=== PATIENT | male | born 1975 | race Caucasian/White ===

== ENCOUNTER 2017-01-08 15:08 | Inpatient (IN) | payer OTHER ==
[~2017-01-08] VITALS: Ht 182.9 cm; Wt 79.4 kg
--- NOTE | ~2017-01-08 | DS ---
Unit #: [id number] #: [id number] Patient: AMANDA CUI [id number] [facility] [address] [place] [address] [id number] MR#: [id number] NAME: AMANDA CUI ROOM: [facility] Age: 41 Sex: M Admission Date: 01/08/2017 : 1975 Discharge Date: 01/11/2017 Attending Physician: Pradeep Ayala M.D. Primary Care Physician: Primary Care Physician No DISCHARGE SUMMARY REASON FOR ADMISSION Substance abuse. DIAGNOSTIC STUDIES LABORATORY DATA: Urine drug screen positive for amphetamine and opiate. HOSPITAL COURSE Patient was admitted to inpatient unit on 01/08 and discharged on 01/11/2017. Patient was treated with group therapy, individual therapy, medication management. Patient was responsive to treatment and showed improvement. Subsequently, patient was discharged with a plan to followup in outpatient program. DISCHARGE DIAGNOSES PSYCHIATRIC: 1. Opiate use disorder, severe, F11.20. 2. Cocaine use disorder, severe, F14.20. 3. Amphetamine use disorder, severe, F15.20. 4. Mood disorder NOS, F32.9. SECONDARY DIAGNOSIS: Deferred. MEDICAL DIAGNOSIS: None. STRESSORS: Psychosocial stressor. FOLLOWUP CARE Patient to followup in outpatient program as per geriatric social worker. DISCHARGE MEDICATIONS None. CONDITION AT DISCHARGE Patient pleasant and cooperative. Denied any psychotic symptoms or any suicidal ideation. PROGNOSIS Guarded. DIET AND ACTIVITY As tolerated. Unit #: [id number] #: [id number] Patient: AMANDA CUI Dictated by... Pradeep Ayala M.D. [facility]/benjamin TD: 01/12/2017 21:14 JOB #: [id number] DISCHARGE SUMMARY Page 1 of 1 X Pradeep Ayala MD X DISCHARGE SUMMARY
--- NOTE | ~2017-01-08 | HP ---
Unit #: [id number] #: [id number] Patient: FEDERICO CUI [id number] [facility] [address] [place] [address] [id number] I MR#: [id number] NAME: FEDERICO CUI ROOM: P177 Age: 41 Sex: M Admission Date: 01/08/2017 : 1975 Attending Physician: Pradeep Ayala M.D. Admitting Physician: Praedep Ayala M.D. Primary Care Physician: Primary Care Physician No HISTORY AND PHYSICAL HISTORY OF PRESENT ILLNESS Federico is a 41 year old [place] immigrant admitted to [facility] because of his drug use. PAST MEDICAL HISTORY Long history of illicit substance abuse to include snorting heroin and methamphetamine. PAST SURGICAL HISTORY Cardiac surgery as a child to repair a hole. ALLERGIES No known drug allergies. SOCIAL HISTORY Smokes one pack per day. Drinks alcohol on occasion. Admits to a long history of poly illicit substance abuse. FAMILY HISTORY Medically noncontributory. REVIEW OF SYSTEMS CONSTITUTIONAL: No fever or chills. HEENT: Denies any sore throat, ear pain or runny nose. CARDIOVASCULAR: Denies chest pain, irregular heart rhythm or palpitations. CHEST: Denies shortness of breath or cough. No hemoptysis. GASTROINTESTINAL: Denies nausea, vomiting, diarrhea or chronic constipation. ENDOCRINE: Denies history of increased thirst or urination. No recent significant weight loss or gain. GENITOURINARY: Denies dysuria, frequency, or hematuria. SKIN: Denies any rashes. HEMATOLOGIC: Denies history of increased bleeding or bruising. MUSCULOSKELETAL: Denies any hot, swollen joints. No generalized muscle pain. NEUROLOGIC: Denies problems with vision or speech. No frequent, severe headaches. No numbness, tingling or weakness in any extremities. Denies loss of bladder or bowel control. CURRENT MEDICATIONS Detox protocol Unit #: [id number] #: [id number] Patient: FEDERICO CUI PHYSICAL EXAMINATION GENERAL: Alert, well-nourished, in no apparent distress. VITAL SIGNS: Blood pressure 136/92, heart rate 60, respirations 16, temperature 98.6. WEIGHT: 175. HEIGHT: 5 foot 0 inches. SKIN: Warm and dry without rash or lesion. HEENT: Normocephalic. TMs not viewed. Oral and nasal passages clear. Conjunctivae clear. Pupils equal, round and reactive to light and accommodation. Extraocular movements intact. NECK: Supple without lymphadenopathy or thyromegaly. HEART: Regular rate and rhythm without murmur. LUNGS: Clear. ABDOMEN: Soft, nontender. : Not done. EXTREMITIES: No evidence of cyanosis, clubbing or edema. Moves all extremities without focal deficit. NEUROLOGICAL: Grossly within normal limits. Cranial Nerves: II: Visual maria are intact. III, IV AND : Extraocular movements are intact. Pupils are equal, round and reactive to light. V: Facial sensation is grossly normal. VII: Facial movements and expression are normal. VIII: Auditory acuity grossly intact. IX, X: Uvula is midline. Phonation is normal. XI: Patient shrugs shoulders and turns head normally. XII: Tongue protrudes in the midline. Sensory and Motor Function: Sensory and motor sensation is grossly normal. Motor: moves all extremities well. Coordination: Gait is normal. Deep Tendon Reflexes: Intact. IMPRESSION Psychiatric admission. RECOMMENDATIONS PSYCHIATRIC: Per psychiatrist. MEDICAL: I see no contraindications to participating in facility's activities. MEDICAL PROGNOSIS Good. MEDICAL CONDITION Stable. Dictated by... Allison Sutherland PMagAMag-Ana Maria. for Ailyn Gamble/spencer TD: 01/09/2017 21:54 JOB #: [id number] Unit #: [id number] #: [id number] Patient: FEDERICO CUI HISTORY AND PHYSICAL Page 1 of 1 X Allison Sutherland HISTORY AND PHYSICAL
--- NOTE | ~2017-01-08 | A ---
[facility] Nutrition Therapy DATE: 01/09/17 Patient: AMANDA CUI Physician: DIMAS Address: [address] [place] [address] Room/Bed: [address], Zip: [place] [address] Admit Date: 01/08/17 Date of : [birth year] Height: 6 0 Weight: 174 79.3786 NUTRITIONAL ASSESSMENT: REASON: UNINTENTIONAL WEIGHT LOSS PATIENT ADMITTED FOR DETOX PMH: NONE Anthropometrics: HT: 72", WT: 175#, BMI: 23.7, %IBW: 98 Labs: 01/09/17- K: 3.2, ALL OTHER NUTRITIONAL LABS WNL Meds: DETOX PROTOCOL Assessment: PATIENT IS A 41 Y/O MALE ADMITTED FOR DETOX. PATIENT IS CURRENTLY UNEMPLOYED, HOMELESS, SMOKES 1 PPD, HAS DAILY HEROIN AND METH USE, AND WEEKLY ETOH AND COCAINE USE. IT IS NOTED THAT PATIENT RELAPSED LAST YEAR AND HE HAS A HX OF INPATIENT PSYCH AND CHEMICAL DEPENDENCY TREATMENT. UPON ADMIT PATIENT STATED A POOR APPETITE WITH A 40# WEIGHT LOSS X MONTHS. THERE IS NO WEIGHT HX RECORDED IN [employer], AND THERE ARE NO CURRENT PO INTAKES D/T PATIENT RECENTLY ADMITTED. THERE ARE NO SKIN OR GI ISSUES NOTED ATT. PATIENT IS ON A REGULAR DIET WITH NO CAFFEINE. PATIENT'S NUTRITIONAL LABS WERE ESSENTIALLY WNL, HIS BMI IS WITHIN A HEALTHY RANGE, AND HE IS 98% OF HIS IBW. THIS RD SUSPECTS WEIGHT AND APPETITE WILL STABILIZE AND POSSIBLY INCREASE FOLLOWING DETOX. Dx: UNINTENTIONAL WEIGHT LOSS R/T CURRENT CONDITION, DRUG USE AEB SELF-REPORTED WEIGHT LOSS AND DECREASED APPETITE, NUTRITIONAL RISK POINT Intervention: REGULAR DIET, NO CAFFEINE, MEDS PER MD, DETOX, PSYCH Monitoring, Evaluation and Goals: 1. ADEQUATE PO INTAKES >50% OF MEALS 2. PREVENT, CORRECT MICRO/MACRO NUTRIENT DEFICIENCIES 3. WEIGHTS; MAINTAIN CURRENT WEIGHT, PREVENT WEIGHT LOSS MONITOR: WEIGHTS, LABS, PO/FLUID INTAKES Recommendations: 1. CONTINUE REGULAR DIET WITH NO CAFFEINE TOLERATED. OFFER SNACKS BETWEEN MEALS. WILL INCREASE ENTREES TO LARGER PORTIONS 2. ENCOURAGE ADEQUATE PO AND FLUID INTAKES 3. OBTAIN WEIGHTS ROUTINELY (EVERY 3-4 DAYS) [facility] Nutrition Therapy DATE: 01/09/17 Patient: AMANDA CUI Physician: DIMAS Address: [address] [place] [address] LN Room/Bed: P177-2 [facility], Zip: [place] [address] Admit Date: 01/08/17 Date of : [birth year] Height: 6 0 Weight: 174 79.3786 4. IF PO INTAKES ARE BELOW 50% OF MEALS PLEASE ORDER ENSURE BID TO PROMOTE ADEQUATE KCAL AND PROTEIN INTAKES RD TO F/U PER PROTOCOL AND PRN R/T PATIENT MILDLY COMPROMISED Respectfully, TYRONE FELTON, RD, LD [facility] cc: client file
--- NOTE | ~2017-01-08 | PA ---
Unit #: [id number] #: [id number] Patient: AMANDA CUI [id number] [facility] [address] [place] [address] [id number] MR#: [id number] NAME: AMANDA CUI ROOM: P177 Age: 41 Sex: M Admission Date: 01/08/2017 : 1975 Date of Assessment: 01/09/2017 Attending Physician: Pradeep Ayala M.D. Admitting Physician: Pradeep Ayala M.D. Primary Care Physician: Primary Care Physician No PSYCHIATRIC ASSESSMENT INFORMANTS The patient reliability, fair informant and chart reliability, good. CHIEF COMPLAINT Drugs. HISTORY OF PRESENT ILLNESS Mr. Caballero is a 41-year-old, presented with the above-mentioned complaint, needing help, currently homeless. The patient reported opioid abuse, cocaine abuse, and amphetamine abuse. The patient presented with his sister for inpatient detox. The patient currently has a COWS score of 20. The patient denied any suicidal or homicidal ideation or any psychotic symptom. The patient reported a desire to change hitting rock bottom. Feeling sad and depressed, feeling of hopelessness. The patient reported multiple withdrawal symptoms; abdominal cramping, muscle cramping, restlessness, poor appetite, poor concentration, irritability, depressed mood, and yawning. The patient reported no history of blackout, HIV, or hepatitis, but history of withdrawal symptoms. No history of any IV drug use. Longest period of sobriety 9 months. Last period of sobriety in 11/2015. The patient reported tobacco use, age of onset 12; alcohol, age of onset 12; marijuana, used in the past; crack cocaine, age of onset 23; opioid, 30; and amphetamine, 40. The patient needing inpatient admission at this time for psychiatric stabilization. PAST PSYCHIATRIC HISTORY Remarkable for history of inpatient treatment in [place] in 2014. FAMILY HISTORY AND SOCIAL HISTORY The patient currently homeless. Poor support system. No history of legal charges or any abuse. Family psychiatric illness is unknown. According to the intake report, history of legal problem in the past. MEDICAL HISTORY Unremarkable for any chronic medical illness. Musculoskeletal; muscle strength and tone, no atrophy or abnormal movement. Gait normal. MEDICATION HISTORY None. ALLERGIES No known drug allergies. SUBSTANCE ABUSE HISTORY Unit #: [id number] #: [id number] Patient: AMANDA CUI Please see above. REVIEW OF SYSTEMS HEENT: Eyes, clear. Ears, nose, mouth, and throat; clear. CARDIOVASCULAR: Unremarkable. RESPIRATORY: Unremarkable. GI: Unremarkable. : Unremarkable. SKIN: Unremarkable. LYMPH NODE: Unremarkable. NEUROLOGIC: Unremarkable. ENDOCRINE: Unremarkable. HEMATOLOGIC: Unremarkable. ALLERGIC/IMMUNOLOGIC: Unremarkable. MUSCULOSKELETAL: Muscle strength and tone, no atrophy or abnormal movement. Gait normal. MENTAL STATUS EXAMINATION CONSTITUTIONAL: Measurement of vital signs; temperature 98.7, heart rate 61, respiratory rate 19, and blood pressure 137/93. Height 6 feet and weight 175 pounds. GENERAL APPEARANCE: The patient dressed casually. The patient did not show any facial deformity. MUSCULOSKELETAL: Please see above. PSYCHIATRIC EXAMINATION Description of speech; regular rate, normal volume, normal articulation, coherent, and spontaneous. Description of thought process, goal directed. Description of association, intact. Description of abnormal psychotic thinking; the patient denied any hallucination or delusions, but mood lability and substance abuse. Description of the patient's judgment: Concerning everyday activity, poor. Social situation, poor. Concerning psychiatric condition, poor. Complete mental status examination; oriented in time, place, and person. Recent and remote memory, fair. Attention span and concentration, fair. Language, able to name object and repeat phrases. Fund of knowledge, aware of current event and passive vocabulary intact. Mood and affect, sad and dysphoric. Insight and judgment, fair to poor. ASSETS AND LIABILITIES Assets, the patient is articulate and able to take care of his ADL. Liability, history of depression and substance abuse. ADMITTING DIAGNOSES Psychiatric: Opioid use disorder, severe, F11.20; cocaine use disorder, severe, F14.20; amphetamine use disorder, severe, F15.20; and mood disorder, not otherwise specified, F32.9. Secondary diagnosis: Deferred. Medical diagnosis: None. Stressors: Psychosocial stressors. PSYCHIATRIC PLAN AND TREATMENT GOAL AND DISCHARGE PLAN 1. Advised to admit the patient on the inpatient unit. Provide safe, supportive, and structured environment. Unit #: [id number] #: [id number] Patient: AMANDA CUI 2. Ordered labs; CBC, CMP, UA, and UDS. 3. Detox protocol and detox monitoring. 4. If needed, consider medication for depression. The patient to attend group therapy, individual therapy, and chemical dependency group. Treatment goal to attain euthymic mood, gain insight into his problem, and learn coping skills. DISCHARGE PLAN Plan to stabilize the patient and consider followup in outpatient program. ESTIMATED LENGTH OF STAY 3 to 5 days. Dictated by... Pradeep Ayala M.D. [facility]/cristal TD: 01/09/2017 15:54 JOB #: [id number] PSYCHIATRIC ASSESSMENT Page 1 of 1 X Pradeep Ayala MD X PSYCHIATRIC ASSESSMENT
--- NOTE | ~2017-01-08 | PN ---
Unit #: [id number] #: [id number] Patient: FEDERICO CUI [id number] [facility] [address] [place] [address] [id number] I MR#: [id number] NAME: FEDERICO CUI ROOM: [facility] Age: 41 Sex: M Admission Date: 01/08/2017 : 1975 Attending Physician: Pradeep Ayala M.D. Admitting Physician: Pradeep Ayala M.D. Primary Care Physician: Primary Care Physician Meche ALLEN PROGRESS NOTES DATE OF SERVICE 01/10/2017 DISCUSSION Federico is a 41-year-old male. Patient interviewed, chart reviewed. Obtained information from nursing staff. Patient reports feeling better, decrease in anxiety, depression. Patient tolerating medication fairly well. Currently receiving treatment for opiate detox. History of cocaine abuse, amphetamine abuse. Complete review of systems unremarkable. MENTAL STATUS EXAMINATION General appearance, patient dressed casually. Attention span and concentration fair. Oriented to time, place and person. Mood and affect labile. Speech monotone. Thought process concrete. Patient denied any thoughts of harming self or others or any psychotic. Recent and remote memory poor. Insight and judgement poor. Patient's vital signs 98.3, 62, 123/81. DIAGNOSES 1. Opiate use disorder severe. 2. Amphetamine use disorder severe. ASSESSMENT/PLAN Advise to continue with current medication and therapeutic protocol. If needed consider further adjustment of medication. Dictated by... Ailyn Metz/spencer TD: 01/11/2017 00:37 JOB #: [id number] Unit #: [id number] #: [id number] Patient: FEDERICO CUI YARAVINOD PROGRESS NOTES Page 1 of 1 X Pradeep Ayala MD X PROGRESS NOTE
--- NOTE | ~2017-01-08 | PN ---
Unit #: [id number] #: [id number] Patient: FEDERICO CUI [id number] [facility] [address] [place] [address] [id number] I MR#: [id number] NAME: FEDERICO CUI ROOM: [facility] Age: 41 Sex: M Admission Date: 01/08/2017 : 1975 Attending Physician: Pradeep Ayala M.D. Admitting Physician: Pradeep Ayala M.D. Primary Care Physician: Primary Care Physician Meche YANCEY NOTES DATE OF SERVICE 01/09/2017 DISCUSSION Federico is a 41-year-old male seen on 01/09/2017. Patient interviewed, chart reviewed. Obtained information from nursing staff. Patient was compliant and cooperative. Mood sad, dysphoric, withdrawn, isolative, guarded. Patient reports still having withdrawal symptoms. Vital signs 98.7, 82, 19, 152/93. Height 6 feet, weight 175 pounds. Complete review of systems unremarkable. MENTAL STATUS EXAMINATION General appearance, patient dressed casually. Attention span and concentration fair. Oriented to place and person. Mood and affect sad, dysphoric, withdrawn, isolative, guarded, flat affect. Patient scored 10 on COWS score. Denied suicidal or homicidal ideation. Denied any psychotic symptom. Recent and remote memory poor. Insight and judgement poor. DIAGNOSES 1. Amphetamine use disorder severe F11.20. 2. Cocaine use disorder severe F14.20. 3. Mood disorder NOS. ASSESSMENT/PLAN Advise to continue with current medication and detox protocol. If needed consider further adjustment of medication. Dictated by... Ailyn Metz/spencer TD: 01/10/2017 03:16 JOB #: [id number] Unit #: [id number] #: [id number] Patient: FEDERICO CUI TIFFANY PROGRESS NOTES Page 1 of 1 X Pradeep Ayala MD PROGRESS NOTE
[2017-01-09 10:21] LABS: ALBUMIN SERUM 4.4 g/dL (3.5-5.0); BILIRUBIN,TOTAL 0.4 mg/dL (0.2-2.0); BUN/CREATININE RATIO 12.5; CALCIUM SERUM 9.2 mg/dL (8.4-10.2); CREATININE SERUM 0.8 mg/dL (0.6-1.4); POTASSIUM 3.2 mmol/L (3.5-5.1)
[2017-01-09 12:25] LABS: BASOPHIL% 0.2 % (0-2.5); EOSINOPHIL# 0.2 X10e3 (0-0.7); EOSINOPHIL% 1.8 % (0.0-7.0); HEMATOCRIT 38.8 % (38.0-50.0); HEMOGLOBIN 13.2 gm/dL (13.0-16.0); LYMPHOCYTE# 1.2 X10e3 (1.0-3.5); LYMPHOCYTE% 10.9 % (17.0-45.0); MEAN CORPUSCULAR HEMOGLOBIN 29.6 PG (28-34); MEAN PLATELET VOLUME 9.7 FL (6.5-11.5); MONOCYTE# 0.7 X10e3 (0-1.0); MONOCYTE% 6.8 % (3.0-12.0); NEUTROPHIL# 8.8 X10e3 (1.5-7.1); NEUTROPHIL% 80.3 % (40-75); PLATELET COUNT 220 X10e3 (140-420); RED BLOOD COUNT 4.46 X10e (3.90-5.60); RED CELL DISTRIBUTION WIDTH 13.3 % (11.0-15.5)
[2017-01-09 12:35] LABS: DIFF IND NO
[2017-01-10 12:36] LABS: URINE APPEARANCE CLEAR; URINE BILIRUBIN NEG (NEG); URINE BLOOD NEG (NEG); URINE COLOR YELLOW; URINE GLUCOSE NEG (NEG); URINE KETONE NEG (NEG); URINE LEUKOCYTE ESTERASE NEG (NEG); URINE NITRATE NEG (NEG); URINE PH 6.5 (5-8); URINE PROTEIN TRACE (NEG); URINE SPECIFIC GRAVITY 1.031 (1.003-1.035); URINE UROBILINOGEN 0.2 MG/DL (NEG)
[2017-01-10 13:01] LABS: AMPHETAMINE POS (NEG); BARBITURATES NEG (NEG); BENZODIAZEPINES NEG (NEG); COCAINE NEG (NEG); MARIJUANA NEG (NEG); OPIATES POS (NEG); TRICYCLIC ANTIDEPRESSANTS NEG (NEG); U METHADONE NEG (NEG)
== END 2017-01-11 18:25 | disposition home or self-care (01) | DRG 897 ==
LOC: P1E 17:07
PROVIDERS: Psychiatry & Neurology Psychiatry
PROC: HZ2ZZZZ Detoxification Services for Substance Abuse Treatment (ICD-10-PCS; principal; 2017-01-09)
DX: F11.20 Opioid dependence, uncomplicated (principal); F14.20 Cocaine dependence, uncomplicated; F15.20 Other stimulant dependence, uncomplicated; F39 Unspecified mood [affective] disorder
CPT/HCPCS: 80053; 80307; 81003; 85025; 86592